=== PATIENT | male | born 1965 | race Caucasian/White ===

== ENCOUNTER 2020-07-20 11:54 | Emergency (ER) | payer OTHER ==
[2020-07-20] MEDS ORDERED: BAMLANIVIMAB 700 MG, ETESEVIMAB 1,400 MG in SODIUM CHLORIDE 250 ML IVPB ONE (12:40)
[2020-07-20 12:45] VITALS: BP 138/78; PULSE 97; TEMP 98.9; BMI 26.7
[2020-07-20 13:02] LABS: BASO % 0.2 % (0-2.0); HEMATOCRIT 49.4 % (35.4-49); HEMOGLOBIN 17.1 GM/dL (11.7-16.9); LYMPH % 9.6 % (8-40); MCH 30.6 pg (25.7-33.7); MCHC 34.7 g/dl (32.0-35.9); MEAN CELL VOLUME 88.1 fl (80-96); MEAN PLT VOLUME 8.1 fl (7.5-11.1); MONO % 4.8 % (3.8-10.2); NEUT % 85.4 % (42.8-82.8); PLATELET COUNT 219 K/MM3 (134-434); RBC 5.61 M/mm3 (4.00-5.60); RDW 12.7 % (11.9-15.9); WHITE BLOOD COUNT 7.6 K/mm3 (4.0-10.0)
[2020-07-20 13:16] LABS: POTASSIUM 3.8 mmol/L (3.5-5.1)
[2020-07-20 13:18] LABS: CALCIUM 9.5 mg/dL (8.5-10.1)
[2020-07-20 13:19] LABS: BLOOD UREA NITROGEN 17.1 mg/dL (7-18)
[2020-07-20 13:22] LABS: CREATININE 1.1 mg/dL (0.55-1.3)
== END 2020-07-20 15:43 | disposition home or self-care (01) ==
LOC: JER 11:54
DX: U07.1 COVID-19 (principal)
CPT/HCPCS: 36415; 80048; 85025; 99284-25; M0239; Q0239; Q0245